=== PATIENT | male | born 1995 | race Caucasian/White ===

== ENCOUNTER 2018-11-06 11:05 | Emergency (ER) | payer SELFPAY | END 2018-11-06 12:32 | disposition home or self-care (01) | LOC: EDH 11:05 | DX: J02.9 Acute pharyngitis, unspecified (principal); R11.2 Nausea with vomiting, unspecified; R09.89 Other specified symptoms and signs involving the circulatory and respiratory systems; Z72.0 Tobacco use | CPT/HCPCS: 70360 ==

== ENCOUNTER 2019-08-01 20:17 | Emergency (ER) | payer OTHER ==
[2019-08-01] MEDS ORDERED: KETOROLAC TROMETHAMINE 30MG/ML ONE (20:53)
[2019-08-01] MEDS ORDERED: SODIUM CHLORIDE 0.9% 1000ML 1,000 ML IV ONE (20:54)
[2019-08-01 21:26] LABS: BASOPHILS % (AUTO) 0.9 % (0.0-5.0); EOSINOPHILS % (AUTO) 2.6 % (0.0-8.0); HEMATOCRIT 46.7 % (42-54); LYMPHOCYTES % (AUTO) 15.1 % (21.0-51.0); MEAN CORPUSCULAR HEMOGLOBIN 30.5 pg (27.0-33.0); MEAN CORPUSCULAR HGB CONC 34.3 g/dL (32.0-36.0); MONOCYTES % (AUTO) 11.5 % (3.0-13.0); NEUTROPHILS % (AUTO) 69.9 % (40.0-77.0); PLATELET COUNT (AUTO) 294 K/uL (130-400); RED BLOOD CELL COUNT(AUTO) 5.24 MIL/uL (4.50-6.20); WHITE BLOOD COUNT (AUTO) 11.6 K/uL (4.8-10.8)
[2019-08-01 21:35] LABS: POTASSIUM 3.6 mmol/L (3.5-5.1)
[2019-08-01 21:40] LABS: ALBUMIN 3.9 g/dL (3.5-5.0); BILIRUBIN,TOTAL 0.3 mg/dL (0.2-1.0); TOTAL PROTEIN, SERUM 7.9 g/dL (6.0-8.3)
[2019-08-01 21:41] LABS: APPEARANCE,URINE Cloudy (CLEAR); BILIRUBIN,URINE Negative (NEGATIVE); COLOR,URINE Yellow (YELLOW); GLUCOSE, URINE (UA) Negative (NEGATIVE); KETONES,URINE Negative (NEGATIVE); LEUKOCYTE ESTERASE ,URINE Negative (NEGATIVE); NITRATE,URINE Negative (NEGATIVE); OCCULT BLOOD,URINE Negative (NEGATIVE); PROTEIN,URINE Negative (NEGATIVE)
[2019-08-01 21:55] LABS: AMORPHOUS SEDIMENT,UR Few /LPF (None Seen); BACTERIA,URINE Rare /HPF (None Seen); MUCUS,URINE None Seen LPF (None Seen); SQUAMOUS EPITHELIAL CELL,UR 0-2 /HPF (0-2)
[2019-08-01] MEDS ORDERED: CLINDAMYCIN 600 MG/D5% WATER 50 ML IV ONE (22:05)
== END 2019-08-01 22:35 | disposition home or self-care (01) ==
LOC: EDH 20:17
DX: L03.818 Cellulitis of other sites (principal); N50.82 Scrotal pain; R30.0 Dysuria; Z72.0 Tobacco use
CPT/HCPCS: 36415 ×2; 76870; 80053; 81001; 85025; 87040 ×2; 96365; 96375; 99285; J1885; J3490; J7030

== ENCOUNTER 2019-08-21 19:21 | Emergency (ER) | payer SELFPAY ==
[2019-08-21 20:12] LABS: APPEARANCE,URINE Clear (CLEAR); BILIRUBIN,URINE Negative (NEGATIVE); COLOR,URINE Yellow (YELLOW); GLUCOSE, URINE (UA) Negative (NEGATIVE); KETONES,URINE Negative (NEGATIVE); LEUKOCYTE ESTERASE ,URINE Negative (NEGATIVE); NITRATE,URINE Negative (NEGATIVE); OCCULT BLOOD,URINE Negative (NEGATIVE); PH,URINE 6.5 (5.0-8.0); PROTEIN,URINE Negative (NEGATIVE)
== END 2019-08-21 20:34 | disposition home or self-care (01) ==
LOC: EDH 19:21
DX: N50.3 Cyst of epididymis (principal)
CPT/HCPCS: 76870; 81003; 87486; 87797